=== PATIENT | male | born 1995 | race Hispanic/Latino ===

== ENCOUNTER 2021-04-02 01:53 | Emergency (ER) | payer SELFPAY ==
[~2021-04-02] VITALS: Ht 165.1 cm; Wt 90.3 kg
[2021-04-02] MEDS ORDERED: ONDANSETRON 4MG INJ ONE (02:24)
[2021-04-02] MEDS ORDERED: 0.9%NACL 1000ML 2,000 ML IV ONE (02:24)
[2021-04-02] MEDS ORDERED: ONDANSETRON 4MG INJ IVP ONE (02:30)
[2021-04-02] MEDS ORDERED: HYOSCYAMINE SULFATE 0.125 MG TAB.SUBL SL ONE ×2 (02:30→02:33)
[2021-04-02] MEDS ORDERED: FAMOTIDINE 20MG VIAL IV ONE ×2 (02:30→02:33)
[2021-04-02 02:36] LABS: BASOPHILS % (AUTO) 0.1 % (0.0-5.0); HEMATOCRIT 46.1 % (42-54); LYMPHOCYTES % (AUTO) 7.9 % (21.0-51.0); MEAN CORPUSCULAR HEMOGLOBIN 28.7 pg (27.0-33.0); MEAN CORPUSCULAR HGB CONC 34.7 g/dL (32.0-36.0); MEAN CORPUSCULAR VOLUME 82.8 fL (79-99); MONOCYTES % (AUTO) 2.8 % (3.0-13.0); NEUTROPHILS % (AUTO) 88.9 % (40.0-77.0); PLATELET COUNT (AUTO) 299 K/uL (130-400); RED BLOOD CELL COUNT(AUTO) 5.57 MIL/uL (4.50-6.20); RED CELL DISTRIBUTION WIDTH 12.1 % (11.0-15.5); WHITE BLOOD COUNT (AUTO) 15.5 K/uL (4.8-10.8)
[2021-04-02 02:51] LABS: CREATININE 1.1 mg/dL (0.5-1.5); POTASSIUM 3.7 mmol/L (3.5-5.1)
[2021-04-02 02:55] LABS: ALBUMIN 4.6 g/dL (3.5-5.0); BILIRUBIN,TOTAL 0.8 mg/dL (0.2-1.0); TOTAL PROTEIN, SERUM 7.9 g/dL (6.0-8.3)
[2021-04-02] MEDS ORDERED: PANTOPRAZOLE 40 MG/VIAL ONE (03:49)
[2021-04-02] MEDS ORDERED: PROMETHAZINE HCL 25 MG/ML 1ML AMPULE IM ONE (04:00)
[2021-04-02] MEDS ORDERED: PANTOPRAZOLE 40 MG/VIAL IVP ONE (04:00)
[2021-04-02 04:01] VITALS: BP 108/60
[2021-04-02 04:07] LABS: APPEARANCE,URINE Clear (CLEAR); BILIRUBIN,URINE Negative (NEGATIVE); COLOR,URINE Yellow (YELLOW); GLUCOSE, URINE (UA) Negative (NEGATIVE); KETONES,URINE 15 mg/dL (NEGATIVE); LEUKOCYTE ESTERASE ,URINE Negative (NEGATIVE); NITRATE,URINE Negative (NEGATIVE); OCCULT BLOOD,URINE Negative (NEGATIVE); PROTEIN,URINE POS 1+ mg/dL (NEGATIVE)
[2021-04-02 04:19] LABS: BACTERIA,URINE None Seen /HPF (None Seen); MUCUS,URINE Rare LPF (None Seen); RBC,URINE None Seen /HPF (0-1); SQUAMOUS EPITHELIAL CELL,UR Rare /HPF (0-2); WBC,URINE 0-1 /HPF (0-1)
[2021-04-02] MEDS ORDERED: ACETAMINOPHEN 500 MG TABLET ONE (04:24)
[2021-04-02] MEDS ORDERED: ONDA4TAB10 PO (05:51)
[2021-04-02] MEDS ORDERED: FAMO-136 PO (05:51)
== END 2021-04-02 06:12 | disposition home or self-care (01) ==
LOC: EDH 01:53
DX: E86.0 Dehydration (principal); R11.10 Vomiting, unspecified; R10.13 Epigastric pain
CPT/HCPCS: 36415; 80053; 81001; 82550; 83690; 85025; 96361; 96372; 96374; 96375; 99284; C9113; J2405; J2550; J3490; J7030

== ENCOUNTER 2022-07-16 14:37 | Emergency (ER) | payer OTHER ==
[~2022-07-16] VITALS: Ht 165.1 cm; Wt 83.9 kg
[~2022-07-16 14:37] MED LIST: FAMO-136 PO; ONDA4TAB10 PO
[2022-07-16] MEDS ORDERED: 0.9%NACL 1000ML 1,000 ML IV ONE (15:00)
[2022-07-16] MEDS ORDERED: ONDANSETRON 4MG INJ IVP ONE (15:00)
[2022-07-16 15:37] LABS: BASOPHILS % (AUTO) 0.2 % (0.0-5.0); EOSINOPHILS % (AUTO) 0.2 % (0.0-8.0); HEMATOCRIT 46.6 % (42-54); LYMPHOCYTES % (AUTO) 17.4 % (21.0-51.0); MEAN CORPUSCULAR HEMOGLOBIN 29.8 pg (27.0-33.0); MEAN CORPUSCULAR HGB CONC 34.5 g/dL (32.0-36.0); MEAN CORPUSCULAR VOLUME 86.1 fL (79-99); MONOCYTES % (AUTO) 7.9 % (3.0-13.0); PLATELET COUNT (AUTO) 307 K/uL (130-400); RED BLOOD CELL COUNT(AUTO) 5.41 MIL/uL (4.50-6.20); RED CELL DISTRIBUTION WIDTH 12.7 % (11.0-15.5); WHITE BLOOD COUNT (AUTO) 11.5 K/uL (4.8-10.8)
[2022-07-16 15:51] LABS: APPEARANCE,URINE TURBID (CLEAR); BILIRUBIN,URINE NEGATIVE (NEGATIVE); COLOR,URINE YELLOW (YELLOW); GLUCOSE, URINE (UA) NEGATIVE (NEGATIVE); KETONES,URINE NEGATIVE (NEGATIVE); LEUKOCYTE ESTERASE ,URINE NEGATIVE Leu/uL (NEGATIVE); NITRATE,URINE NEGATIVE (NEGATIVE); OCCULT BLOOD,URINE NEGATIVE (NEGATIVE); PROTEIN,URINE 30 mg/dL (NEGATIVE); UROBILINOGEN,URINE 0.2 mg/dL (0.2-1.0)
[2022-07-16 15:58] LABS: POTASSIUM 3.8 mmol/L (3.5-5.1)
[2022-07-16 16:02] LABS: ALBUMIN 4.2 g/dL (3.5-5.0); TOTAL PROTEIN, SERUM 7.3 g/dL (6.0-8.3)
[2022-07-16 16:06] LABS: MUCUS,URINE RARE LPF (None Seen); WBC,URINE 0-1 /HPF (0-1); YEAST,URINE BUDDING RARE /HPF (None Seen)
[2022-07-16 16:40] VITALS: BP 129/72
== END 2022-07-16 16:52 | disposition home or self-care (01) ==
LOC: EDH 14:37
DX: B34.9 Viral infection, unspecified (principal); Z20.822 Contact with and (suspected) exposure to COVID-19; Z79.899 Other long term (current) drug therapy; Z98.890 Other specified postprocedural states
CPT/HCPCS: 99283; 96374; 96361; 87635; 80053; 85025; 87880; 87804 ×2; 81001; 36415; C9803; J7030; J2405